=== PATIENT | female | born 1975 | race African-American/Black ===

== ENCOUNTER 2016-04-14 02:27 | Inpatient (IN) ==
[2016-04-09 14:59] LABS: BASO% 0.3 % (0.0-0.8); MANUAL DIFF NEEDED? NO
[2016-04-09 15:00] LABS: BILIRUBIN URINE NEGATIVE (NEGATIVE); BLOOD URINE NEGATIVE (NEGATIVE); COLOR YELLOW; GLUCOSE URINE NEGATIVE (NEGATIVE); LEUKOCYTES URINE NEGATIVE (NEGATIVE); NITRITE URINE NEGATIVE (NEGATIVE); PROTEIN URINE TRACE mg/dL (NEGATIVE); SP GRAVITY URINE 1.023; TURBIDITY URINE CLEAR (CLEAR); URINE MICRO REVIEW NEEDED? NO; URINE SOURCE CLEAN CATCH; UROBILINOGEN URINE NORMAL (NORMAL)
[2016-04-09 15:02] LABS: UR EPITHELIAL CELLS >10 /HPF (<10); URINE BACTERIA 2+ /HPF; URINE RBC <10 /HPF (<10); URINE WBC <10 /HPF (<10)
[2016-04-09 15:07] LABS: EOS% 1.5 % (0.0-10.0); HEMATOCRIT 39.6 % (37.0-47.0); LYMPH# 1.82 X1000 (1.2-3.4); LYMPH% 26.6 % (20.5-51.1); MCH 30.1 PG (27-31); MCHC 32.8 g/dL (33-37); MCV 91.7 FL (81-99); MONO# 0.44 X1000 (0.11-0.59); MONO% 6.4 % (1.7-9.3); MPV 9.8 FL (7.4-10.4); NEUT% 65.2 % (42.2-75.2); PLT 332 X1000 (130-400); RBC 4.32 XMIL (4.2-5.4)
--- NOTE | 2016-04-10 05:55 | EKG Report ---
Test Performed on : 04/09/2016 2:36:55 PM Test Reason : PAT Blood Pressure : / mmHG Vent. Rate : 067 BPM Atrial Rate : 067 BPM P-R Int : 148 ms QRS Dur : 084 ms QT Int : 400 ms P-R-T Axes : 059 044 027 degrees QTc Int : 422 ms Normal sinus rhythm. Possible Anterior infarct , age undetermined Abnormal ECG No previous ECGs available Confirmed by Barbara SEGURA, [place] Isidro ([id number]) on 04/10/2016 5:22:51 PM
--- NOTE | 2016-04-13 09:28 | HISTORY AND PHYSICAL ---
HISTORY OF PRESENT ILLNESS: Maylin is a 40-year-old, black female, who is being admitted for a total abdominal hysterectomy with right salpingo-oophorectomy secondary to a persistent right ovarian cyst, abnormal uterine bleeding and also pelvic pain. She has a history of 2 ectopic pregnancies. One on each side and allegedly, the left tube and ovary were removed when that one was involved. She has also had a history of uterine fibroids and underwent uterine artery embolization back in 2011 when she lived in [place]. She continues to have abnormal bleeding, mostly in the form of menometrorrhagia, but the more current issue is with the right ovary and the persistent cyst. We have been following it. She had a CA-125, that was well within normal range at 10 and she did have ultrasounds that showed the cyst to measure approximately 8 x 6 x 8 cm with somewhat of a complicated appearance. There has been no free fluid on her ultrasounds. She has decided that she does want to move on in the direction of the proposed procedure. She does understand that once the right tube and ovary are removed, that she would be in a surgical menopause condition and that she ultimately may need to consider some estrogen replacement therapy. We also discussed the nature of the procedure, the risks involved, the risk of anesthesia, other issues, not limited to, but including injury to surrounding structures, infection, hemorrhage and even . We talked about the usual length of hospitalization, and also the recuperation time at home and the restrictions therein. Overall, she feels well informed in regards to the proposed procedure, and as stated ready to move on in that direction. PAST HISTORY: Other than the above, she has also had of course tubal ligation with the ectopics. She does have essential hypertension, which is managed with medication. ALLERGIES: No known allergies. FAMILY HISTORY: Significant for lung cancer in her father. SOCIAL HISTORY/REVIEW OF SYSTEMS: Otherwise, basically noncontributory. PHYSICAL EXAMINATION: GENERAL: Exam is that of a well-developed, well-nourished, 40-year-old black female, in no acute distress. VITAL SIGNS: Stable. Noted on the chart. HEENT: Unremarkable. NECK: Without nodes or thyromegaly. HEART: Regular without murmurs, gallops, or rubs. LUNGS: Clear. BREASTS: Without mass or tenderness. ABDOMEN: Soft. Nontender. No masses with a well healed low vertical midline incision from her previous surgeries. PELVIC: Normal external female genitalia. Vagina is clean. Cervix no obvious lesions. Uterus feels normal to upper normal size. No adnexal masses were felt. RV normal. EXTREMITIES: Without tenderness or edema. NEUROLOGICAL: Grossly normal. ASSESSMENT: 1. Persistent right ovarian cyst. 2. Abnormal uterine bleeding, mostly in the form of menometrorrhagia. 3. Chronic pelvic pain. 4. Past history of ectopic pregnancies and also uterine artery embolization. PLAN: Total abdominal hysterectomy with right salpingo-oophorectomy.
[2016-04-14] MEDS ORDERED: LR 1,000 ML ONE ×2 (05:39→09:05)
[2016-04-14] MEDS ORDERED: PEPCID ONE (05:39)
[2016-04-14] MEDS ORDERED: KEFZOL 1 GM/D5W 50 ML ONE (05:39)
[2016-04-14] MEDS ORDERED: REGLAN ONE (05:39)
[2016-04-14 07:30] LABS: URINE MICRO REVIEW NEEDED? NO; URINE SOURCE CATH
[2016-04-14 07:34] LABS: BILIRUBIN URINE NEGATIVE (NEGATIVE); BLOOD URINE NEGATIVE (NEGATIVE); COLOR STRAW; GLUCOSE URINE NEGATIVE (NEGATIVE); LEUKOCYTES URINE NEGATIVE (NEGATIVE); NITRITE URINE NEGATIVE (NEGATIVE); PH URINE 7.5; PROTEIN URINE NEGATIVE (NEGATIVE); SP GRAVITY URINE 1.006; TURBIDITY URINE CLEAR (CLEAR); UR EPITHELIAL CELLS <10 /HPF (<10); URINE BACTERIA NEGATIVE /HPF; URINE RBC <10 /HPF (<10); URINE WBC <10 /HPF (<10); UROBILINOGEN URINE NORMAL (NORMAL)
[2016-04-14] MEDS ORDERED: MARCAINE 0.25% PF ONE ×2 (07:49)
[2016-04-14] MEDS ORDERED: SODIUM CHLORIDE 0.9% 30 ML ONE (07:49)
[2016-04-14] MEDS ORDERED: EXPAREL 1.3% ONE (07:50)
[2016-04-14] MEDS ORDERED: VERSED ONE (08:51)
[2016-04-14] MEDS ORDERED: DIPRIVAN 1% ONE (08:52)
[2016-04-14] MEDS ORDERED: FENTANYL ONE (08:52)
[2016-04-14] MEDS: DEMEROL ONE ×5 (09:05→09:40)
[2016-04-14] MEDS ORDERED: NORCURON ONE (09:25)
[2016-04-14] MEDS ORDERED: ZOFRAN ONE (09:25)
[2016-04-14] MEDS ORDERED: NEOSTIGMINE ONE (09:25)
[2016-04-14] MEDS ORDERED: ROBINUL ONE (09:26)
[2016-04-14] MEDS ORDERED: QUELICIN (DOSE) ONE (09:26)
[2016-04-14] MEDS ORDERED: LR 2,000 ML ONE (09:26)
[2016-04-14] MEDS ORDERED: XYLOCAINE-MPF 2% ONE (09:26)
[2016-04-14] MEDS ORDERED: DECADRON ONE (09:26)
[2016-04-14] MEDS ORDERED: CLIMARA 0.05 MG/24 HR PATCH TD ONE (10:30)
[2016-04-14] MEDS ORDERED: DILAUDID PCA VIAL ONE (10:43)
[2016-04-14] MEDS ORDERED: PHENERGAN IV PRN (10:48)
[2016-04-14] MEDS ORDERED: DILAUDID PCA VIAL IV PRN (10:48)
[2016-04-14] MEDS ORDERED: NARCAN IV PRN (10:48)
[2016-04-14] MEDS ORDERED: ZOFRAN IV PRN (10:48)
[2016-04-14] MEDS ORDERED: SODIUM CHLORIDE 0.9% INJ PRN (10:48)
[2016-04-14] MEDS ORDERED: NARCAN 0.4 MG in LR 1,000 ML IV PRN (10:48)
[2016-04-14] MEDS ORDERED: BENADRYL IV PRN (10:48)
[2016-04-14] MEDS: HYDROCHLOROTHIAZIDE PO SCH (10:53)
[2016-04-14] MEDS: PRINIVIL PO SCH (10:54)
[2016-04-14] MEDS: LR 1,000 ML IV SCH (10:55)
[2016-04-14] MEDS: LEXAPRO PO SCH (12:35)
[2016-04-14] MEDS: WELLBUTRIN XL PO SCH (12:35)
[2016-04-14] MEDS: PERIDEX MT SCH ×2 (12:36→20:27)
--- NOTE | 2016-04-14 12:41 | OPERATIVE NOTE ---
PROCEDURE DATE: 04/14/2016 SURGEON: Maxwell Porter MD SENIOR ANDROID DEVELOPER: Luisito Valencia MD ANESTHESIA: General endotracheal, per Dr. Gallo, who also did a TAP block postoperatively. PREOPERATIVE DIAGNOSES: 1. Persistent right ovarian cyst. 2. Chronic pelvic pain. 3. Abnormal bleeding, mostly in the form of menometrorrhagia. POSTOPERATIVE DIAGNOSES: 1. Persistent right ovarian cyst. 2. Chronic pelvic pain. 3. Abnormal bleeding, mostly in the form of menometrorrhagia. PROCEDURE PERFORMED: Subtotal supracervical abdominal hysterectomy with right salpingo- oophorectomy and extensive adhesiolysis. OPERATIVE NOTE: Maylin was brought to the operating room and, after being placed upon the operating table and subsequently under general anesthesia, she was prepped and draped in the usual sterile fashion in the supine position with a Ricci catheter in place. The abdomen was entered going through a Pfannenstiel incision and she had previously had 2 lower abdominal incisions, and we did encounter a good bit of scarring in the subfascial plane. Once the peritoneum was opened and extended, we did encounter a significant amount of intraperitoneal adhesions. We were able to, with some sharp but mostly blunt dissection, isolate the fundus of the uterus and grasp it with a Gladis clamp. The uterus was small and then, with mostly blunt dissection, and again with some careful sharp dissection, we were able to isolate the right ovarian cyst. It did rupture with clear fluid during the dissection procedure and we were able to ultimately elevate it the incision site. We isolated the infundibulopelvic ligament. The ureter was found to be deep to these structures and we crossclamped, transected, and suture ligated the infundibulopelvic ligament. There was still some bleeding from some of the adhesions which we had to go back and place some [id number] style stitches but these were done superficially in taking care not to injure any surrounding structures. Once we were able to free up the right adnexa, we then created our bladder flap anteriorly and took it down with sharp and some blunt dissection and, at this point, we were then able to place Arleen clamps across the uterine vessels. These were then transected and suture ligated. This was done in a 2-step manner. It should be noted that there was no left adnexa as we were aware off going into the procedure that she had the left tube and ovary surgically removed at the time of an ectopic . Due to all of the scarring down over the lower anterior surface of the cervix and the uterus being normal size, we elected to take a couple more pedicles down the paracervical tissue, and then amputate the fundus of the uterus away from the cervix at the isthmic portion, leaving just a small cervical stump. After that was done, we then cauterized the endocervical canal and placed sutures on either side to help secure not only the angles but hemostasis and to provide hemostasis across the top of the cervical stump. Once this was done, we did use some careful electrocautery. We also found a couple of other oozing points from the right side where all the primary dissection had taken place and a couple more ztypww-rp-prdad style stitches were placed over there. Ultimately, after irrigating the pelvic cavity several times and inspecting, we found hemostasis to be good. Minimal ooze was noted and we did place a strip of Surgicel across that area to aid in hemostasis. Again, after thorough inspection, we found no evidence of any ongoing bleeding. We removed the 2 moist lap packs that we had in place. Another [address] to put pressure on the right side while we were proceeding on with the subtotal hysterectomy and that 1 had been removed previously as well. At this point, all of the needle, sponge, and instrument counts were correct and we proceeded with closure of the abdominal incision by placing a running stitch to reapproximate the peritoneum mostly in the midline as there were so many adhesions that we could not get good isolation of the peritoneal layer. Some of this did include the rectus muscle. After that, we thoroughly inspected the subfascial plane. It was found to be hemostatic. We then ran the fascia starting from the right side over to the midpoint with a running #1 Polysorb and then from the left side over to the midpoint with a similar stitch. That was done in a running and alternating interlock- type of stitch. After this, the subcu layer was controlled hemostatically with the electrocautery and the skin edges were then brought together with a surgical stapler. After they performed the TAP abdominal wall muscle block by Dr. Gallo, a pressure dressing was applied. It should be noted, at this point, all of the needle, sponge, and instrument counts were correct at the end of the case. Maylin was then awakened and transferred to the stretcher and to the recovery room in stable condition, draining clear urine in the Ricci catheter bag. It should be noted that I did speak with her mother out in the surgical waiting area to let her know what we did encounter during the procedure but that we had accomplished most of what we had set out to do, especially with removal of the cyst and removal of the upper part of the uterus, but I did explain to her about the cervical stump being left in hopes of cutting down on the chances of complications postoperatively, such as fistula formation and infection. Overall, she felt pleased with the report. She had no further questions and felt well-informed.
--- NOTE | 2016-04-14 16:58 | PROGRESS NOTE ---
DATE: 04/14/2016 SUBJECTIVE: Johnie is now on about 8 hours status post subtotal supracervical hysterectomy with right salpingo-oophorectomy and extensive adhesiolysis. She also had the tap block done by Dr. Gallo postoperatively. She is resting comfortably in her room and doing quite well. She relates that her pain management is excellent and she has been able to already to increase her diet to a clear liquid tray. OBJECTIVE: Vital signs are stable. She remains afebrile. The dressing is clean and dry and extremities without tenderness or edema. She has excellent urine output that is clear and indicates that she is in need of nothing other than what she has going on at this point in time. ASSESSMENT/PLAN: We will continue on as ordered and revisit her tomorrow morning unless needed before that. She is status post the above-mentioned surgery and stable.
[2016-04-14] MEDS: AMBIEN PO SCH ×2 (20:26→20:32)
[2016-04-14] MEDS ORDERED: NEURONTIN PO SCH (21:00)
[2016-04-15] MEDS: LR 1,000 ML IV SCH ×3 (02:38→11:24)
[2016-04-15 06:30] LABS: MANUAL DIFF NEEDED? NO
[2016-04-15 06:46] LABS: BASO% 0.1 % (0.0-0.8); EOS# 0.03 X1000 (0.0-0.7); EOS% 0.3 % (0.0-10.0); HEMATOCRIT 34.9 % (37.0-47.0); HEMOGLOBIN 11.5 g/dL (12.0-16.0); LYMPH# 1.61 X1000 (1.2-3.4); LYMPH% 15.3 % (20.5-51.1); MCH 30.4 PG (27-31); MCV 92.3 FL (81-99); MONO% 6.6 % (1.7-9.3); MPV 9.9 FL (7.4-10.4); NEUT% 77.7 % (42.2-75.2); PLT 304 X1000 (130-400); RBC 3.78 XMIL (4.2-5.4)
[2016-04-15] MEDS ORDERED: SALINE LOCK IV FLUID XX ONE (06:50)
[2016-04-15] MEDS: HYDROCHLOROTHIAZIDE PO SCH (08:28)
[2016-04-15] MEDS: PRINIVIL PO SCH (08:28)
[2016-04-15] MEDS: LEXAPRO PO SCH (08:29)
[2016-04-15] MEDS: WELLBUTRIN XL PO SCH (08:29)
[2016-04-15] MEDS: PERIDEX MT SCH (08:29)
--- NOTE | 2016-04-15 08:54 | PROGRESS NOTE ---
DATE: 04/15/2016 It is postop day #1. Maylin is now about 24 hours status post subtotal supracervical abdominal hysterectomy with right salpingo-oophorectomy and extensive adhesiolysis. She had a reasonably restful night. Her pain management was adequate or better. She has remained afebrile with stable vital signs. Abdomen is soft. Incision dressing is dry. Extremities are without tenderness or edema. Her Ricci catheter was removed a little bit earlier this morning and she has been able to void on her own without the catheter. She has also been able to increase her diet and her activity. It should also be noted that the postoperative blood work was stable and well within acceptable range. Plans are for her increase her activity this morning. We will revisit her in about 4 hours, around lunchtime, to see about the prospects of her possibly being discharged to home today. She seems very optimistic about that plan. We will go over all the instructions and prescriptions, and prepare her for discharge if all looks well at that time. She is stable postoperatively.
[2016-04-15] MEDS: NORCO-10 PO PRN ×2 (09:46→13:01)
[2016-04-15 11:39] VITALS: BP 149/76
--- NOTE | 2016-04-15 13:44 | PROGRESS NOTE ---
DATE: 04/15/2016 Johnie Dc is now about 30 hours status post subtotal supracervical abdominal hysterectomy with right salpingo-oophorectomy and extensive adhesiolysis. She has been able to void without the catheter this morning on several occasions. She has increased her diet and her activity and is managed well with oral pain medications. She has remained afebrile and has had stable vital signs. As noted earlier on the chart her postoperative lab work was acceptable and within normal range. She is desirous of being discharged to home today and will be discharged to the care of her family. General instructions in regard to incision care, routine activity and sexual activity had been given. Also a prescription for estradiol 0.1 mg patch, she will change that on a twice weekly basis, and also has been given a prescription for [place] 10, #36, and she will take 1/2 to 1 tab every 4-6 hours as needed for pain. Plans are also made for her return to the private office next week on Wednesday or Wednesday, whichever is convenient for her, for staple removal and her first postop check. Again she is stable postop and will be discharged to home today.
== END 2016-04-15 14:15 | disposition home or self-care (01) | DRG 743 ==
LOC: SURHOLD 02:27 → 4N 09:12
PROVIDERS: ADMIT Obstetrics & Gynecology; ATTEND Obstetrics & Gynecology
PROC: 0UT00ZZ Resection of Right Ovary, Open Approach (ICD-10-PCS; 2016-04-14)
PROC: 0DNW0ZZ Release Peritoneum, Open Approach (ICD-10-PCS; 2016-04-14)
PROC: 0UBC0ZZ Excision of Cervix, Open Approach (ICD-10-PCS; 2016-04-14)
PROC: 0UT90ZZ Resection of Uterus, Open Approach (ICD-10-PCS; principal; 2016-04-14 06:50)
PROC: 0UT50ZZ Resection of Right Fallopian Tube, Open Approach (ICD-10-PCS; 2016-04-14 06:50)
DX: N92.1 Excessive and frequent menstruation with irregular cycle (principal); I10 Essential (primary) hypertension; N83.201 Unspecified ovarian cyst, right side; G47.33 Obstructive sleep apnea (adult) (pediatric); G25.81 Restless legs syndrome; N73.6 Female pelvic peritoneal adhesions (postinfective); Z80.1 Family history of malignant neoplasm of trachea, bronchus and lung; Z79.899 Other long term (current) drug therapy; Z79.1 Long term (current) use of non-steroidal anti-inflammatories (NSAID); M19.90 Unspecified osteoarthritis, unspecified site
CPT/HCPCS: 81001; 84703; 85025; 86850; 86900; 86901; 88307; 88313; 93005; 93010; 94761; 94799; C9290; J0330; J0690; J1100; J1170; J2175; J2250; J2405; J3010; J7120; J2710; S0020